=== PATIENT | male | born 1990 | race Caucasian/White ===

== ENCOUNTER 2019-03-30 08:40 | Emergency (ER) | payer OTHER, BC ==
[2019-03-30] MEDS ORDERED: HYDROMORPHONE 1 MG/ML SYRINGE IV PRN ×2 (09:06→12:55)
[2019-03-30] MEDS ORDERED: SODIUM CHLORIDE 0.9% 1000ML 1,000 ML IV ONE (09:07)
[2019-03-30] MEDS ORDERED: ONDANSETRON HCL 4 MG/2 ML SOL IV ONE (09:07)
[2019-03-30] MEDS ORDERED: HYDROMORPHONE 1 MG/ML SYRINGE ONE ×2 (09:20→13:07)
[2019-03-30] MEDS ORDERED: ONDANSETRON HCL 4 MG/2 ML SOL ONE (09:21)
[2019-03-30 09:27] LABS: CALCIUM 8.7 mg/dl (8.5-10.1); CREATININE 0.95 mg/dl (0.80-1.30); POTASSIUM 3.9 mMol/L (3.5-5.1)
[2019-03-30 09:32] LABS: BASOPHILS % (AUTO) 1 % (0-3); EOSINOPHILS % (AUTO) 1 % (0-9); HEMATOCRIT 43 % (39-53); HEMOGLOBIN 14.8 gm/dl (13.5-17.7); LYMPHOCYTES % (AUTO) 28.1 % (10-50); MEAN CORPUSCULAR HEMOGLOBIN 31.4 pg (27.0-32.0); MEAN CORPUSCULAR HGB CONC 34.2 gm/dl (32.0-36.0); MEAN CORPUSCULAR VOLUME 92 fL (80-100); MONOCYTES % (AUTO) 8.1 % (0-12); NEUTROPHILS % (AUTO) 61.5 % (37-80)
[2019-03-30] MEDS: SODIUM CHLORIDE 0.9% FLUSH 10 ML SOL IV PRN ×2 (09:36→13:10)
[2019-03-30] MEDS ORDERED: LORAZEPAM 2 MG/ML 10ML MDV 2 MG/ML VIAL IV PRN (09:45)
[2019-03-30] MEDS ORDERED: LORAZEPAM 2 MG/ML SOL ONE (09:51)
[2019-03-30 11:19] VITALS: TEMP 97.2
[2019-03-30] MEDS ORDERED: KETOROLAC TROMETHAMINE 30 MG/ML SOL IV ONE (12:17)
[2019-03-30] MEDS ORDERED: KETOROLAC TROMETHAMINE 30 MG/ML SOL ONE (12:23)
[2019-03-30] MEDS ORDERED: SOLUMEDROL 125 MG/2 ML 125 MG/2 ML PDS IV ONE (12:56)
[2019-03-30] MEDS ORDERED: SOLUMEDROL 125 MG/2 ML 125 MG/2 ML PDS ONE (13:07)
[2019-03-30 14:51] VITALS: BP 129/82; PULSE 80; RESP 16; O2SAT 97
== END 2019-03-30 14:49 | disposition home or self-care (01) | DRG 552 ==
LOC: ED 08:40
DX: M54.5 Low back pain (principal)
CPT/HCPCS: 70030; 72148; 80048; 85025; 96365; 96374; 96375; 99283; 99285; J1885; J2060; J2405; J2930; J1170

== ENCOUNTER 2019-04-27 08:40 | Day surgery (SDC) | payer OTHER, BC ==
[2019-04-27] MEDS ORDERED: BUPIVACAINE HCL 0.25% MPF 30 ML SOL INFIL ONE (09:23)
[2019-04-27] MEDS: DEXAMETHASONE SOD PHOS PF 10 MG/ML SOL IJ ONE ×2 (09:38→09:42)
[2019-04-27 09:53] VITALS: PULSE 68; RESP 16; TEMP 98.4
[2019-04-27 10:09] VITALS: BP 123/82; O2SAT 100
== END 2019-04-27 10:18 | disposition home or self-care (01) | DRG 552 ==
LOC: SURG 08:40
PROVIDERS: ATTEND Nurse Anesthetist, Certified Registered
DX: M51.17 Intervertebral disc disorders with radiculopathy, lumbosacral region (principal)
CPT/HCPCS: J1100

== ENCOUNTER 2019-05-11 13:29 | Day surgery (SDC) | payer OTHER, BC ==
[2019-05-11 13:56] VITALS: TEMP 98.8
[2019-05-11] MEDS ORDERED: DEXAMETHASONE SOD PHOS PF 10 MG/ML SOL IJ ONE (14:24)
[2019-05-11] MEDS ORDERED: BUPIVACAINE HCL 0.25% MPF 30 ML SOL INFIL ONE (14:25)
[2019-05-11 14:47] VITALS: BP 121/79; PULSE 79; RESP 20; O2SAT 99
== END 2019-05-11 15:38 | disposition home or self-care (01) | DRG 552 ==
LOC: SURG 13:29
PROVIDERS: ATTEND Nurse Anesthetist, Certified Registered
DX: M51.17 Intervertebral disc disorders with radiculopathy, lumbosacral region (principal)
CPT/HCPCS: J1100

== ENCOUNTER 2019-05-12 04:31 | Emergency (ER) | payer OTHER, BC ==
[2019-05-12 04:37] VITALS: TEMP 98.3
[2019-05-12] MEDS ORDERED: HYDROMORPHONE 1 MG/ML SYRINGE ONE ×3 (05:08→08:14)
[2019-05-12] MEDS ORDERED: KETOROLAC TROMETHAMINE 30 MG/ML SOL IV ONE (05:12)
[2019-05-12] MEDS ORDERED: HYDROMORPHONE HCL 2 MG/ML SOL IV ONE ×2 (05:13→07:02)
[2019-05-12] MEDS ORDERED: SOLUMEDROL 125 MG/2 ML 125 MG/2 ML PDS IV ONE (05:15)
[2019-05-12] MEDS ORDERED: KETOROLAC TROMETHAMINE 30 MG/ML SOL ONE (05:18)
[2019-05-12] MEDS ORDERED: SOLUMEDROL 125 MG/2 ML 125 MG/2 ML PDS ONE (05:18)
[2019-05-12 05:48] LABS: BASOPHILS % (AUTO) 0 % (0-3); EOSINOPHILS % (AUTO) 0 % (0-9); HEMATOCRIT 42 % (39-53); HEMOGLOBIN 14.9 gm/dl (13.5-17.7); LYMPHOCYTES % (AUTO) 10.3 % (10-50); MEAN CORPUSCULAR HEMOGLOBIN 32.8 pg (27.0-32.0); MEAN CORPUSCULAR HGB CONC 35.2 gm/dl (32.0-36.0); MEAN CORPUSCULAR VOLUME 93 fL (80-100); MONOCYTES % (AUTO) 3.6 % (0-12)
[2019-05-12] MEDS ORDERED: ONDANSETRON HCL 4 MG/2 ML SOL ONE (05:52)
[2019-05-12] MEDS ORDERED: ONDANSETRON HCL 4 MG/2 ML SOL IV ONE (05:52)
[2019-05-12 06:12] LABS: ALBUMIN 4.2 gm/dl (3.4-5.0); BILIRUBIN,TOTAL 0.8 mg/dl (0.2-1.0); CALCIUM 9.3 mg/dl (8.5-10.1); CARBON DIOXIDE 22.6 mEq/L (21-32); CREATININE 1.04 mg/dl (0.80-1.30); CRP INFLAMMATORY 0.08 mg/dl (0.00-0.33); TOTAL PROTEIN 7.7 gm/dl (6.4-8.2)
[2019-05-12] MEDS ORDERED: HYDROMORPHONE 1 MG/ML SYRINGE IV ONE (08:13)
[2019-05-12 08:29] VITALS: RESP 18
[2019-05-12] MEDS ORDERED: TRAMADOL HYDROCHLORIDE 50 MG TAB PO ONE (11:33)
[2019-05-12] MEDS ORDERED: TRAMADOL HYDROCHLORIDE 50 MG TAB ONE (11:38)
[2019-05-12 11:52] VITALS: BP 131/71; PULSE 94; O2SAT 100
== END 2019-05-12 11:34 | disposition short-term general hospital (02) | DRG 74 ==
LOC: ED 04:31
DX: G62.9 Polyneuropathy, unspecified (principal); M54.9 Dorsalgia, unspecified; R51 Headache; R39.198 Other difficulties with micturition
CPT/HCPCS: 36415; 72148; 80053; 85025; 86140; 96374; 96375; 99283; 99285; J1885; J2405; J2930; A9270-GY; J1170